=== PATIENT | male | born 1930 | race Caucasian/White ===

== ENCOUNTER → 2018-03-26 | Outpatient (CLI) | payer MEDICARE ==
[2018-03-26 12:26] LABS: ABSOLUTE EOSINOPHILS # (AUTO) 0.1 10^3/uL (0.0-0.6); ABSOLUTE LYMPHOCYTES (AUTO) 0.8 10^3/uL (0.5-4.7); ABSOLUTE MONOCYTES (AUTO) 0.4 10^3/uL (0.1-1.4); ABSOLUTE NEUT (AUTO) 2.1 10^3/uL (1.7-8.2); BASOPHILS % (AUTO) 1.1 % (0-2); EOSINOPHILS % (AUTO) 2.3 % (0-6); HEMATOCRIT 39.2 % (37.9-51.0); HEMOGLOBIN 13.4 g/dL (13.5-17.0); MEAN CORPUSCULAR HEMOGLOBIN 33.7 pg (27.0-33.4); MEAN CORPUSCULAR HGB CONC 34.2 g/dL (32.0-36.0); MEAN CORPUSCULAR VOLUME 99 fl (80-97); MONOCYTES % (AUTO) 12.9 % (3-13); PLATELET COUNT 150 10^3/uL (150-450); RED BLOOD COUNT 3.97 10^6/uL (4.35-5.55); RED CELL DISTRIBUTION WIDTH 13.5 % (11.5-14.0); SEGMENTED NEUTROPHILS % (AUTO) 61.7 % (42-78); TOTAL CELLS COUNTED % (AUTO) 100 %; WHITE BLOOD COUNT 3.5 10^3/uL (4.0-10.5)
[2018-03-26 12:49] LABS: ALANINE AMINOTRANSFERASE 31 U/L (21-72); ALBUMIN 4.4 g/dL (3.5-5.0); ALKALINE PHOSPHATASE 60 U/L (38-126); ANION GAP 7 (5-19); ASPARTATE AMINO TRANSFERASE 33 U/L (17-59); BILIRUBIN,DIRECT 0.3 mg/dL (0.0-0.4); BILIRUBIN,TOTAL 0.5 mg/dL (0.2-1.3); BLOOD UREA NITROGEN 18 mg/dL (7-20); CALCIUM 9.5 mg/dL (8.4-10.2); CARBON DIOXIDE 30 mmol/L (22-30); CHLORIDE 107 mmol/L (98-107); GLUCOSE 89 mg/dL (75-110); POTASSIUM 4.4 mmol/L (3.6-5.0); SODIUM 143.8 mmol/L (137-145); TOTAL PROTEIN 6.9 g/dL (6.3-8.2); URIC ACID 5.4 mg/dL (3.5-8.5)
== END ==
LOC: OD 11:20
PROVIDERS: ATTEND Internal Medicine
DX: E78.2 Mixed hyperlipidemia (principal); R63.4 Abnormal weight loss
CPT/HCPCS: 36415; 80053; 84443; 84550; 85025

== ENCOUNTER 2018-04-25 05:28 | Day surgery (SDC) | payer MEDICARE ==
--- NOTE | 2018-04-18 11:11 | EKG REPORT ---
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
[~2018-04-25 05:28] MED LIST: ACETAMINOPHEN 325 MG TABLET PO PRN; CEFAZOLIN 1 GM/D5W RTU 1 GM/50 ML RTUPB IV ONE; CEFAZOLIN 1 GM/D5W RTU 1 GM/50 ML RTUPB IV PRN; LACTATED RINGERS 1000 ML IV PRN; LIDOCAINE 0.5% INJ-PF (5 MG/ML) 50 ML SDV SUBCUT PRN
[2018-04-25 06:17] LABS: INTERNATIONAL RATION (INR) 1.03
[2018-04-25 06:18] LABS: PARTIAL THROMBOPLASTIN TIME 29.1 SEC (23.5-35.8)
[2018-04-25] MEDS ORDERED: BUPIVACAINE HCL 0.5%-EPI 1:200000 INJ/PF 30 ML VIAL ONE (06:23)
[2018-04-25] MEDS ORDERED: LIDOCAINE 2% INJ-PF (100 MG/5 ML) SYRINGE ONE (06:46)
[2018-04-25] MEDS ORDERED: FENTANYL CITRATE INJ/PF 100 MCG/2 ML AMPUL ONE (06:46)
[2018-04-25] MEDS ORDERED: PROMETHAZINE HCL INJ 25 MG/1 ML VIAL ONE (06:46)
[2018-04-25] MEDS ORDERED: ONDANSETRON HCL INJ/PF 4 MG/2 ML SDV ONE (06:47)
[2018-04-25] MEDS ORDERED: PROPOFOL INJ 200 MG/20 ML VIAL IV ONE (06:47)
[2018-04-25] MEDS ORDERED: HYDROMORPHONE HCL INJ/PF 2 MG/ML AMPULE ONE (06:47)
[2018-04-25] MEDS ORDERED: ACETAMINOPHEN 1,000 MG/100 ML RTUPB IV ONE (06:47)
[2018-04-25] MEDS ORDERED: DEXAMETHASONE SOD PHOSPHATE INJ 4 MG/1 ML VIAL ONE (06:47)
[2018-04-25] MEDS ORDERED: MIDAZOLAM 2 MG/2 ML INJ ONE (06:47)
[2018-04-25] MEDS ORDERED: EPHEDRINE SULFATE INJ 50 MG/1 ML AMPULE ONE (06:48)
[2018-04-25] MEDS ORDERED: FENTANYL CITRATE INJ/PF 100 MCG/2 ML AMPUL IV PRN ×3 (08:01)
[2018-04-25] MEDS ORDERED: MORPHINE SULFATE 10 MG/ML INJ IV PRN (08:01)
[2018-04-25] MEDS ORDERED: PROMETHAZINE HCL INJ 25 MG/1 ML VIAL IV PRN ×2 (08:01)
[2018-04-25] MEDS ORDERED: DIPHENHYDRAMINE HCL 50 MG/ML VIAL IV PRN (08:01)
[2018-04-25] MEDS ORDERED: MEPERIDINE HCL/PF INJ 25 MG/1 ML DISP.SYRIN IV PRN (08:01)
[2018-04-25] MEDS ORDERED: CEFAZOLIN INJ 1 GM VIAL ONE (08:37)
--- NOTE | 2018-04-25 08:50 | Operative Report ---
Nonrecallable Operative Report DATE OF SURGERY: 04/25/18 PREOPERATIVE DIAGNOSIS: right inguinal hernia POSTOPERATIVE DIAGNOSIS: right indirect inguinal hernia OPERATION: right inguinal herniorraphy SURGEON: GERSON SCHAFER 1ST PRINCIPAL MILITARY ANALYST: ISADORA MEJÍA ANESTHESIA: Spinal TISSUE REMOVED OR ALTERED: none COMPLICATIONS: none ESTIMATED BLOOD LOSS: 10cc INTRAOPERATIVE FINDINGS: indirect inguinal hernia PROCEDURE: see dictation
[2018-04-25] MEDS ORDERED: TRAMADOL HCL 50 MG TABLET PO PRN (08:52)
--- NOTE | 2018-04-25 08:52 | Discharge Summary ---
Discharge Summary (SDC) - Discharge Final Diagnosis: right inguinal hernia Date of Surgery: 04/25/18 Condition: Good Treatment or Instructions: no wt lifting greater than 10lbs for 6wks may shower tomorrow. Referrals: SRINIVAS BEAN MD [Primary Care Provider] - Discharge Diet: As Tolerated Discharge Activity: No Lifting/Push/Pulling Report the Following to Your Physician Immediately: Shortness of Breath, Nausea, Vomiting, Increase in Pain, Fever over 101 Degrees, Unusual Bleeding, Redness
--- NOTE | 2018-04-25 09:27 | OPERATIVE REPORT E ---
Operative Report NAME: TONYA HYLTON : 1930 AGE: 87Y DATE OF SURGERY: 04/25/2018 ROOM: PREOPERATIVE DIAGNOSIS: Right inguinal hernia. POSTOPERATIVE DIAGNOSIS: Right inguinal hernia. OPERATIVE PROCEDURE: Right inguinal herniorrhaphy. SURGEON: GERSON SCHAFER M.D. EQUALIZER OPERATOR: SHEILA Torres, who was present for the entire case for wound retraction and wound closure. INDICATIONS FOR PROCEDURE: This is an 87-year-old male with a symptomatic right inguinal hernia that is reducible. PROCEDURE: The patient was brought to the operating room in an awake, alert, stable condition, placed on the operating table in supine position after a spinal anesthetic was placed. The right groin was prepped and draped in the usual sterile manner for the procedure. A curvilinear incision was made just above the inguinal crease in the right groin, dissection carried out through subcutaneous tissues with Bovie cautery. Mei fascia was opened with Bovie cautery. External oblique fascia was identified and incised and opened with Metzenbaum scissors. A hemostat was placed on the inferior and superior flap of the external oblique and the cord was mobilized along with the sac *------* with a [place] drain used for retraction. The ilioinguinal nerve was identified and preserved. Once the cord and sac were identified, the sac was dissected away from the cord structures with blunt and sharp dissection all the way to the internal ring, opened, twisted upon itself, and ligated high with an 0-Ethibond suture, and the stump was allowed to drop back into the abdominal cavity. The weak floor was repaired with a piece of polypropylene mesh using 0-Ethibond sutures between the conjoined tendon and the Poupart ligament in a Sharda-type repair. Once this was completed the cord was allowed to drop back on top of the mesh and the mesh was dusted with Ancef powder, external oblique was closed with a running 2-0 Polysorb suture, Mei's was closed with interrupted 3-0 Vicryl suture, and the skin was closed with 4-0 Rapide suture. Steri-Strips were applied. Estimated blood loss was less than 10 mL. Sponge and needle counts were correct x2. The patient was then transferred to recovery in stable condition, no complications. DICTATING PHYSICIAN: GERSON SCHAFER M.D. [id number] PHY#: [id number] ID: [id number] JOB#: [id number] ACCT: [id number] cc:GERSON SCHAFER M.D. >
[2018-04-25 14:25] VITALS: BP 159/88
== END 2018-04-25 14:00 | disposition home or self-care (01) ==
LOC: OROUT 05:28
PROVIDERS: ATTEND Surgery
DX: K40.90 Unilateral inguinal hernia, without obstruction or gangrene, not specified as recurrent (principal); E78.00 Pure hypercholesterolemia, unspecified; Z85.528 Personal history of other malignant neoplasm of kidney; Z85.51 Personal history of malignant neoplasm of bladder; I48.91 Unspecified atrial fibrillation; Z87.891 Personal history of nicotine dependence; I25.10 Atherosclerotic heart disease of native coronary artery without angina pectoris; K44.9 Diaphragmatic hernia without obstruction or gangrene; Z79.899 Other long term (current) drug therapy; Z79.01 Long term (current) use of anticoagulants
CPT/HCPCS: 93005; 36415; 84132; 85610; 85730; 93010; 49505; C1781; J2250; J3490; J0690 ×2; J1100; J2001; J2550; J2405; J2704; J0131; 830; J1170; J3010